=== PATIENT | female | born 1980 | race Caucasian/White ===

== ENCOUNTER 2020-09-08 09:24 | Emergency (ER) | payer OTHER, SELFPAY ==
[2020-09-08 09:30] VITALS: BP 156/92; PULSE 82; RESP 16; TEMP 36.3; O2SAT 99
--- NOTE | 2020-09-08 09:30 | DI.RAD_ITS ---
EXAM: XR TIB/FIB RT CLINICAL HISTORY: pain s/p fall TECHNIQUE: COMPARISON: CR,XR XR ANKLE RT COMPLETE from 09/08/2020 FINDINGS: Two views of the leg and three views of the ankle were obtained. There is no evidence of fracture or dislocation. Ankle mortise is well maintained. There is moderate soft tissue swelling adjacent to the lateral malleolus. IMPRESSION: RADIATION DOSE DELIVERED: Total DLP
--- NOTE | 2020-09-08 09:38 | W.ED.GENAD ---
Discharge Plan Disposition Patient Disposition: HOME Condition: Stable Discharge Details Clinical Impression: Right ankle sprain Primary Care Provider: Shirley Benton ED Provider: Quique Clark Home Meds and New Rx's Prescriptions: Continued albuterol sulfate 8.5 GM HFA aerosol inhaler 1 - 2 puff Inhalation Q4H PRN RF: 0 Discharge Instructions Instructions: Ankle Sprain (ED) Additional Instructions: Your xray did not show any broken bones follow up with your primary care provider if pain continues in a week if you have new pain such as chest pain, headache or difficulty breathing return to the emergency department and if you have severe worsening pain Medical Decision Making 39 yo female was riding a hoverboard on Wednesday and tripped and rolled her right ankle. Denies hitting head or loc. Has no pain in the head, neck chest abdomen, only has pain in anterior mid tibia and lateral ankle. Mild swelling of right lateral ankle and normal sensation and pulses, no pain over metatarsals, does have full range of motion of ankle. no pain in knee or hip with full rom. Suspect sprain but will xray to evaluate for fx/dislocation xray negative exam stable. Will d/c and have her f/u with pcp if pain continues and return precautions given Differential Diagnosis Differential Diagnosis: sprain, strain, fx Imaging Data Radiologic Study: Attestation: I personally reviewed and interpreted this imaging study as follows: Imaging: X-Ray Radiologist's impression: no acute findings on tib/fib xray Radiologic Study #2: Attestation: I personally reviewed and interpreted this imaging study as follows: Imaging: X-Ray Radiologist's impression: no acute findings on ankle xray [facility] General Mode of arrival: ambulatory. Date/Time Provider Initiated Documentation: 09/08/20 09:25. Limitations to Documentation: no limitations. Information obtained by: patient. History of Present Illness 39 year old F presents to the emergency department with the chief complaint of right ankle pain, described as moderate, and it has been constant. Rest improves symptom(s), Movement worsens symptoms . Patient did receive the following treatments prior to arrival, none Related Data Home Medications Medication Instructions Recorded Confirmed albuterol sulfate 1 - 2 puff INHALATION Q4H PRN 06/20/14 09/08/20 inhaler Allergies Allergy/AdvReac Type Severity Reaction Status Date / Time No Known Allergies Allergy Unverified 09/08/20 09:33 General Stated Complaint: Orthopedic JACOB: 4 Review of Systems All systems reviewed & are unremarkable except as noted in HPI and below Constitutional Constitutional: Denies chills, Denies fever(s) and Denies weakness Cardiovascular Cardiovascular: Denies chest pain and Denies dyspnea Respiratory Respiratory: Denies cough and Denies dyspnea Gastrointestinal Gastrointestinal: Denies abdominal pain, Denies nausea and Denies vomiting Integumentary/Breasts Skin/Breast: Denies rash Neurologic Neurologic: Denies weakness [facility] Social History Smoking/Tobacco Use Status: Never Substance use type: does not use Do you feel safe in your relationship?: Yes Exam Const General: no acute distress Orientation: alert HENMT Head: normal to inspection Ears: external ears normal General nose exam: external nose normal Mouth: moist mucous membranes Eyes General: appearance normal, both eyes and all related structures Neck Neck: normal visual inspection Resp Effort & Inspection: normal respiratory effort and able to speak in complete sentences Cardio Rate: regular rate Skin General skin exam: no rashes or lesions noted Neuro General: patient alert and patient oriented x3 Extrem General: full ROM and capillary refill normal Psych Mental Status: mental status grossly normal Course Vital Signs Vital signs: Vital Signs Temperature 36.3 C L 09/08/20 09:30 Pulse 82 09/08/20 09:30 Respiratory Rate 16 09/08/20 09:30 Blood Pressure 156/92 H 09/08/20 09:30 Pulse Oximetry 99 09/08/20 09:30 Temperature 36.3 C L 09/08/20 09:30 Temperature Source Skin 09/08/20 09:30 Pulse 82 09/08/20 09:30 Respiratory Rate 16 09/08/20 09:30 Respiratory Effort 09/08/20 09:30 Blood Pressure 156/92 H 09/08/20 09:30 Blood Pressure Position Sitting 09/08/20 09:30 Pulse Oximetry 99 09/08/20 09:30 Oxygen Delivery Method Nasal Cannula 09/08/20 09:30 Pain Level 8 09/08/20 09:30
--- NOTE | 2020-09-08 10:03 | DI.VRAD_ITS ---
PROCEDURE INFORMATION: Exam: XR Right Ankle Exam date and time: 09/08/2020 9:51 AM Age: 39 years old Clinical indication: Pain; Ankle; Right; Patient HX: Fall TECHNIQUE: Imaging protocol: XR Right ankle. Views: 3 or more views. COMPARISON: No relevant prior studies available. FINDINGS: Bones/joints: There is no evidence of acute fracture.There is no evidence of malalignment or dislocation. Soft tissues: Bimalleolar soft tissue swelling IMPRESSION: There is no evidence of acute fracture.There is no evidence of malalignment or dislocation. Dictated and Authenticated by: Cedric Mckinley MD. Ordering:KIN Lei MD
--- NOTE | 2020-09-08 10:03 | DI.VRAD_ITS ---
PROCEDURE INFORMATION: Exam: XR Right Tibia and Fibula Exam date and time: 09/08/2020 9:53 AM Age: 39 years old Clinical indication: Pain; Lower leg; Right; Patient HX: Fall TECHNIQUE: Imaging protocol: XR Right tibia and fibula. Views: 2 views. COMPARISON: No relevant prior studies available. FINDINGS: Bones/joints: There is no evidence of acute fracture.There is no evidence of malalignment or dislocation. Soft tissues: Normal. IMPRESSION: There is no evidence of acute fracture.There is no evidence of malalignment or dislocation. Dictated and Authenticated by: Cedric Mckinley MD. Ordering:KIN Lei MD
== END 2020-09-08 10:41 | disposition home or self-care (01) ==
PROVIDERS: Emergency Provider Emergency Medicine; PCP Nurse Practitioner Family
DX: S93.491A Sprain of other ligament of right ankle, initial encounter (principal); X50.9XXA Other and unspecified overexertion or strenuous movements or postures, initial encounter; Y93.41 Activity, dancing
CPT/HCPCS: 29515; 99284; 73590; 73610; 99283; L1902

== ENCOUNTER 2021-05-13 09:16 | Outpatient (REF) | payer SELFPAY ==
--- NOTE | 2021-05-13 08:45 | PAPFT_PTH ---
PATIENT: Lashay Felipe LOC: NCN #:[id number] AGE/SX: 40/F ROOM: RE05/13/[address]: Shirley Benton : 1980 BED: DIS: 05/13/2021 SPEC #: [id number] RECD: 05/14/21 12:49 STATUS: CHERIE RELetha #: [id number] FIDENCIO: 05/13/21 08:[address]: Shirley Benton DEPT: [facility] Cytology RECD BY: Joyce Smith Tissues: 1 - CX/ENDOCX FOR PAP SMEARS Procedures: PAP THIN PREP/UVM Screening HPV DNA PROBE Comments: [id number]
[2021-05-13 20:08] LABS: Anion Gap 9.9 mmol/L (3-11); BUN 13 mg/dL (7-18); CO2 26.1 mmol/L (21.0-32.0); CREATININE 0.9 mg/dL (0.55-1.02); Calcium 9.1 mg/dL (8.5-10.1); Calculated LDL 127 mg/dL (<100); Chloride 105 mmol/L (98-107); Cholesterol 190 mg/dL (<200); Glucose 90 mg/dL (74-106); HDL Cholesterol 40 mg/dL (40-60); Potassium 4.2 mmol/L (3.5-5.1); Sodium 141 mmol/L (136-145); TSH (W/Ref FT4) 1.27 uIU/mL (0.36-3.74); Triglyceride 117 mg/dL (<150)
== END 2021-05-13 09:17 | disposition home or self-care (01) ==
LOC: NCHCN 09:16
PROVIDERS: PCP Nurse Practitioner Family; Visit Provider Nurse Practitioner Family
DX: Z00.00 Encounter for general adult medical examination without abnormal findings (principal); Z13.220 Encounter for screening for lipoid disorders; Z12.4 Encounter for screening for malignant neoplasm of cervix; Z11.51 Encounter for screening for human papillomavirus (HPV)
CPT/HCPCS: 80048; 80061; 88142; 84443; 87624

== ENCOUNTER 2023-03-04 10:52 | Outpatient (REF) | payer OTHER, SELFPAY | END 2023-03-04 10:53 | disposition home or self-care (01) | LOC: LBN 10:52 | PROVIDERS: PCP Nurse Practitioner Family; Visit Provider Physician Assistant Medical | DX: J02.9 Acute pharyngitis, unspecified (principal) | CPT/HCPCS: 87077; 87070 ==

== ENCOUNTER 2023-08-04 16:38 | Outpatient (REF) | payer OTHER, SELFPAY ==
[2023-08-04 19:34] LABS: Anion Gap 8.9 mmol/L (3-11); BUN 15 mg/dL (7-18); CO2 26.1 mmol/L (21.0-32.0); Calculated LDL 120 mg/dL (<100); Chloride 101 mmol/L (98-107); Cholesterol 194 mg/dL (<200); Estimated GFR 72.58 (mL/min/1.73m2); Glucose 82 mg/dL (74-106); HDL Cholesterol 44 mg/dL (40-60); Potassium 4.1 mmol/L (3.5-5.1); Sodium 136 mmol/L (136-145); Triglyceride 153 mg/dL (<150)
== END 2023-08-04 16:39 | disposition home or self-care (01) ==
LOC: NCHCN 16:38
PROVIDERS: PCP Nurse Practitioner Family; Visit Provider Nurse Practitioner Family
DX: E78.5 Hyperlipidemia, unspecified (principal); J45.20 Mild intermittent asthma, uncomplicated; E66.8 Other obesity; Z68.38 Body mass index [BMI] 38.0-38.9, adult
CPT/HCPCS: 80048; 80061

== ENCOUNTER → 2023-09-16 01:32 | Outpatient (CLI) | payer OTHER, SELFPAY ==
--- NOTE | 2023-09-16 08:46 | DI.MAMMO_ITS ---
Exam(s) MAMMO SCREENING EXAM: MAMMO SCREENING CLINICAL HISTORY: Screening, Z12.39 TECHNIQUE: Bilateral full field digital CC and MLO mammographic images were obtained with 3D tomosyn thesis and utilizing computer aided detection (CAD). COMPARISON: This is a baseline examination. FINDINGS: Masses/Architectural Distortion: None seen. Microcalcifications: No suspicious pleomorphic-type are seen. Skin Thickening/Nipple Retraction: None. IMPRESSION: 1. No significant interval change with no specific features of malignancy noted. 2. Unless there is more urgent need, screening mammography is recommended, as per [employer] guidelines. BI-RADS Category 1 - Negative Breast Density - Category C - Heterogeneously dense Breast density category C or D implies that the patient has dense breast tissue. Dense breast tissue is very common and is not abnormal but dense breast tissue can make it harder to find cancer on a ma mmogram. Also, dense breast tissue may increase their breast cancer risk. This information about the result of the mammogram report was provided to the patient to raise their awareness. Use this report when you speak with the patient about their risks for breast cancer, which includes their family hist ory. At that time, you may recommend for more screening tests (Ultrasound or MRI) as they might be us eful based on their risk. A negative radiographic report should not delay biopsy if a dominant or clinically suspicious mass is present. Up to ten percent of cancers are not identified on mammography. A negative report may reinforce clinical impression. Adenosis and dense breasts may obscure an underlying neoplasm. False positive reports average 6 to 10%. Patient will receive a letter notifying them of these results.
== END ==
PROVIDERS: PCP Nurse Practitioner Family; Visit Provider Nurse Practitioner Family
DX: Z12.31 Encounter for screening mammogram for malignant neoplasm of breast (principal)
CPT/HCPCS: 77063; 77067

== ENCOUNTER 2024-02-22 10:22 | Outpatient (REF) | payer OTHER, SELFPAY ==
[2024-02-22 18:55] LABS: Abs Immature Grans 0.02 10^3/uL (0.0-0.06); Absolute Basophil Count 0.05 10^3/uL (0.0-0.2); Absolute Eosinophil Count 0.18 10^3/uL (0.0-0.7); Absolute Monocyte Count 0.43 10^3/uL (0.1-0.8); Absolute Neutrophil Count 3.57 10^3/uL (1.2-6.7); Basophils % 0.8; Eosinophils % 2.9; HCT 40.4 % (36.0-46.0); HGB 13.2 g/dL (11.2-15.7); Immature Grans % 0.3; MCH 30.5 pg (27.0-33.0); MCHC 32.7 % (32.0-36.0); MCV 93 fL (80-95); Monocytes % 6.9; Neutrophils % 57.1; Platelet Count 365 10^3/uL (130-400); RBC 4.33 10^6/uL (3.93-5.22); RDW 12.5 % (11.7-14.6); RDW-SD 43.2 fL; WBC 6.25 10^3/uL (4.4-10.8)
[2024-02-22 19:22] LABS: ALT 25 U/L (14-59); AST 8 U/L (15-37); Albumin 3.7 g/dL (3.4-5.0); Alkaline Phosphatase 24 U/L (46-116); Anion Gap 9.4 mmol/L (3-11); BUN 15 mg/dL (7-18); Bilirubin, Total 0.3 mg/dL (0.2-1.0); CO2 27.6 mmol/L (21.0-32.0); CREATININE 0.9 mg/dL (0.55-1.02); Calcium 9.2 mg/dL (8.5-10.1); Chloride 107 mmol/L (98-107); Estimated GFR 81.86 (mL/min/1.73m2); Ferritin 66 ng/mL (8-252); Glucose 91 mg/dL (74-106); Potassium 4.8 mmol/L (3.5-5.1); Sodium 144 mmol/L (136-145); TSH (W/Ref FT4) 1.18 uIU/mL (0.36-3.74)
[2024-02-22 19:42] LABS: Iron 83 ug/dL (50-170); Total Iron Binding Capacity 299 ug/dL (250-450); Transferrin Sat 28 % (15-50)
== END 2024-02-22 10:23 | disposition home or self-care (01) ==
LOC: NCHCN 10:22
PROVIDERS: PCP Nurse Practitioner Family; Visit Provider Nurse Practitioner Family
DX: R53.83 Other fatigue (principal)
CPT/HCPCS: 80053; 82728; 83540; 83550; 84443; 85025

== ENCOUNTER 2024-03-12 19:30 | Observation (INO) | payer OTHER, SELFPAY ==
[2024-03-12] VITALS (30 sets, daily range): BP systolic 108–190; BP diastolic 57–87; PULSE 98–135; RESP 10–20; TEMP 39; O2SAT 94–100
--- NOTE | 2024-03-12 19:30 | RT.EKG_ITS ---
APPROVED REPORT Exam: Resting ECG Reason for Exam: sob Patient Location: E HR:134 bpm ECG Measurements Heart Rate 134 AXIS NC 132 P 80 QRSd 78 QRS 78 QT 364 T -83 QTc 544 Conclusion Sinus tachycardia...rate> 99 Nonspecific repol abnormality, diffuse leads...ST dep, T flat/neg, ant/lat/inf Prolonged QT interval...QTc >510mS Physician: lateral st depressions. No stemi
--- NOTE | 2024-03-12 19:50 | ED.GENADUL_ITS ---
Discharge Plan Disposition Patient Disposition: Admit to [facility] Condition: Stable Discharge Details Clinical Impression: Sepsis, Pneumonia Primary Care Provider: MADISON CAMPUZANO ED Provider: Shin Houston Home Meds and New Rx's Prescriptions: No Action albuterol sulfate 8.5 GM HFA aerosol inhaler 1 - 2 puff Inhalation Q4H PRN montelukast 10 mg tablet 10 mg PO DAILY Patient Comments: TAKE ONE TABLET BY MOUTH EVERY DAY HPI General Date/Time Provider Initiated Documentation: 03/12/24 19:50 . HPI Narrative: 43 year-old female presents to ED today by POV/ambulating with a chief complaint of chest pain/shortness of breath with onset yesterday while painting a fence. Has history of asthma, felt similar- but has had continued chest pressure, shortness of breath, non-productive cough, vomiting, headaches, and fever. Quality described as generalized malaise, no radiation to syncope, dizziness, black/bloody stools, focal abdominal pain, visual changes. Severity is described as 8/10. Palliating factors include had Tylenol & Motrin 6 hours ago. Patients at-home inhalers aren't helping. Provoking factors include nothing specific. Events leading up to the incident/Associated Symptoms: [ ]. Patient not anticoagulated. Related Data Home Medications Medication Instructions Recorded Confirmed albuterol sulfate 90 mcg/actuation 1 - 2 puff inhalation Q4H PRN 06/20/14 03/12/24 aerosol inhaler montelukast 10 mg tablet 10 mg PO DAILY 03/12/24 03/12/24 Allergies Allergy/AdvReac Type Severity Reaction Status Date / Time No Known Allergies Allergy Unverified 03/12/24 19:48 General Stated Complaint: RespSymp JACOB: 3 Review of Systems All systems reviewed & are unremarkable except as noted in HPI and below Exam Narrative Exam Narrative: GENERAL APPEARANCE: Well-nourished, non-toxic, awake and alert, atraumatic, no acute distress. SKIN: Warm, pink, dry, intact, without rashes/lesions/ulcerations. HEAD: Normocephalic, atraumatic, normal hair distribution for gender/age. EYES: Pupils PERRLA, EOMs intact without nystagmus, normal conjunctiva, no exudates on lids/lashes. ENT: Nares patent, no circumoral cyanosis, no facial swelling, oral mucosa moist NECK: Supple, trachea midline, painless cervical ROM. LUNGS/CHEST: Lungs CTA bilaterally- rales/wheezes diffusely- rhonchi on R, active cough, non-labored respirations, normal A/P diameter, symmetrical expansion, no chest wall deformity HEART (CV/PV): Regular rate and rhythm without murmur- tachycardic, no peripheral edema, no JVD. ABDOMEN: Soft, non-distended, no guarding, no tenderness. MSK: Normal ROM, no swelling/deformity to bilateral UEs or LEs, moving all extremities without weakness, no cyanosis, spine midline without tenderness, normal curvature. NEURO: Mental Status AAOx4 - alert to person, place, time, events No facial droop, no forehead involvement. Motor: No focal weakness - strength 5/5 in bilateral UEs and LEs, proximal and distal, symmetric. Sensory: sensation intact to light touch globally. Gait normal: patient ambulated without ataxia into ED room. PSYCH: euthymic, cooperative, pleasant, appropriate speech Course Vital Signs Vital signs: Vital Signs Temperature 39.0 C H 03/12/24 19:34 Pulse 134 H 03/12/24 19:34 Respiratory Rate 16 03/12/24 19:34 Blood Pressure 190/87 H 03/12/24 19:34 Pulse Oximetry 97 03/12/24 19:34 Temperature 39.0 C H 03/12/24 19:34 Temperature Source Oral 03/12/24 19:34 Pulse 134 H 03/12/24 19:34 Respiratory Rate 16 03/12/24 19:34 Respiratory Effort Normal, Non-Labored 03/12/24 19:47 Blood Pressure 190/87 H 03/12/24 19:34 Blood Pressure Position Supine 03/12/24 19:34 Pulse Oximetry 97 03/12/24 19:34 Oxygen Delivery Method Room Air 03/12/24 19:34 Oxygen Flow Rate 0 03/12/24 19:34 Pain Level 8 03/12/24 19:34 Medical Decision Making This dictation utilizes [id number] dictation software and may contain unedited grammatical errors. 43 y/o F presents to ED today with a chief complaint of onset of shortness of breath, chest pain yesterday while painting a fence. This continued overnight and today she has had vomiting, body aches, non-productive cough, headache, and fever of 102F on arrival. Patient denies known sick contacts, feels similar to past significant asthma attacks but is ongoing for much longer and her inhalers haven't provided relief. Patients' medical history: Asthma. Family and social history: [ ]. Pertinent exam findings / vital signs include no overt wheezing, is tachypneic and tachycardic, benign abdomen, febrile, neuro intact. Differential / pathologies of concern include sepsis, URI, PNA, PE, ACS, Viral S yndrome. Diagnostic studies of: -CBC, CMP, lactate, procalcitonin, troponin I, BNP, CRP/ESR, lipase, magnesium, TSH, D-dimer, urinalysis, blood cultures, VBG, COVID/flu/RSV PCR, EKG. -CBC shows leukocytosis to 16 -CRP significantly elevated at 25, ESR elevated -Lactate neg, procal 0.1 -Elevated LFTs, consider legionella PNA -Covid/Flu/RSV neg -Trop I neg -BNP neg -Lipase WNL -Magnesium WNL -D-dimer 722, CTA performed -VBG no acidosis -EKG shows a sinus tachycardia with P waves followed by narrow complex QRS, rate 134, normal axis, good R wave progression, ST depression in V3 V4 and 5, no o ther T wave abnormalities, no ST elevations reciprocally, normal QT QTc -CTA shows multilobar R PNA Interventions of: -1L NS IVF, 1g IV APAP, 15mg IV Ketorlac, 6mL DuoNeb. ED Course/Assessment/Plan: 43-year-old female presents with onset of sudden onset shortness of breath and cough, body aches headaches yesterday, having chest pressure. CTA shows a multilobar right pneumonia, she remains very febrile at 39 C after both IV Tylenol and Toradol here in the emergency department, remains tachycardic with IV hydration. She appears overall well but has chronic severe asthma. Lactate and procalcitonin are negative but her ALT is significantly bumped. I loaded her with IV ceftriaxone and azithromycin, approached hospitalist service for admission for sepsis and pneumonia. Dr. Rojas accepted for admission at 2248. Findings not consistent with hypoxic respiratory failure. Disposition of Sepsis, Pneumonia. Patient verbalized understanding of the plan and return to ED criteria and en gaged in shared decision making. Medical Records Medical records reviewed: Yes I reviewed the patient's medical records. Imaging Data Radiologic Study: Attestation: I personally reviewed and interpreted this imaging study as follows: Imaging: CT Scan Radiologist's impression: Exam: CTA Chest With Contrast Exam date and time: 03/12/2024 9:07 PM Age: 43 years old Clinical indication: Patient HX: Tachycardic, chest pain, cough TECHNIQUE: Imaging protocol: Computed tomographic angiography of the chest with contrast. Exam focused on the arteries. 3D rendering (Not supervised by radiologist): MIP and/or 3D reconstructed images were created by the technologist. Radiation optimization: All CT scans at this facility use at least one of these dose optimization techniques: automated exposure control; mA and/or kV adjustment per patient size (includes targeted exams where dose is matched to clinical indication); or iterative reconstruction. Contrast material: OMNIPAQUE 350; Contrast volume: 100 ml; Contrast route: INTRAVENOUS (IV); COMPARISON: No relevant prior studies available. FINDINGS: Pulmonary arteries: Normal. No pulmonary emboli. Aorta: Unremarkable. No aortic aneurysm. No aortic dissection. Lungs: There nodular and ground-glass infiltrates in the right upper lobe, right middle and right lower lobe, most pronounced in the right upper lobe. The left lung is clear. Pleural spaces: Unremarkable. No pneumothorax. No pleural effusion. Heart: Unremarkable. No cardiomegaly. No pericardial effusion. Lymph nodes: Unremarkable. No enlarged lymph nodes. Diaphragm: There is a small hiatal hernia. Bones/joints: Multilevel small anterior osteophytes thoracic spine. Soft tissues: Unremarkable. IMPRESSION: 1. Multilobar right lung pneumonia. 2. No pulmonary embolism. Dictated and Authenticated by: Lamont Hernandez MD. Ordering:DAVID Melissa MD Lab Data Lab results reviewed: Yes I reviewed the patient's lab results. Labs: 03/12/24 20:15 Blood Blood Culture - Pending 03/12/24 19:45 Blood Blood Culture - Pending Laboratory Tests Range/Units 03/12/24 03/12/24 19:45 20:46 WBC (4.4-10.8) 10^3/uL 16.14 H RBC (3.93-5.22) 10^6/uL 4.06 Hgb (11.2-15.7) g/dL 12.5 Hct (36.0-46.0) % 37.6 MCV (80-95) fL 93 MCH (27.0-33.0) pg 30.8 MCHC (32.0-36.0) % 33.2 RDW (11.7-14.6) % 13.0 Plt Count (130-400) 10^3/uL 351 MPV (8.0-11.0) fL 9.4 Immature Gran % 0.5 Neutrophils % 81.8 Lymphocytes % 7.9 Monocytes % 8.5 Eosinophils % 0.9 Basophils % 0.4 Nucleated RBC % (0.0-0.3) % 0.0 Absolute Neutrophils (1.2-6.7) 10^3/uL 13.20 H Absolute Lymphocytes (1.2-3.4) 10^3/uL 1.28 Absolute Monocytes (0.1-0.8) 10^3/uL 1.37 H Absolute Eosinophils (0.0-0.7) 10^3/uL 0.15 Absolute Basophils (0.0-0.2) 10^3/uL 0.06 ESR (0-20) mm/hr 57 H D-Dimer (<500) ng/mlFEU 722 H VBG pH (7.31-7.41) 7.46 H VBG pCO2 (41-51) mmHg 34 L VBG pO2 mmHg 36 VBG HCO3 (23-28) mmol/L 25 VBG Total CO2 (24-29) mmol/L 22 L VBG O2 Saturation % 72 VBG Base Excess (-2-3) mmol/L 1 VBG Lactate (0.6-1.4) mmol/L 1.2 Sodium (136-145) mmol/L 140 Potassium (3.5-5.1) mmol/L 3.4 L Chloride (98-107) mmol/L 103 Carbon Dioxide (21.0-32.0) mmol/L 24.2 Anion Gap (3-11) mmol/L 12.8 H BUN (7-18) mg/dL 8 Creatinine (0.55-1.02) mg/dL 1.0 Est GFR (CKD-EPI 2020) (mL/min/1.73m2) 72.13 Glucose (74-106) mg/dL 125 H Calcium (8.5-10.1) mg/dL 9.3 Magnesium (1.8-2.4) mg/dL 1.9 Total Bilirubin (0.2-1.0) mg/dL 0.4 AST (15-37) U/L 105 H ALT (14-59) U/L 143 H Alkaline Phosphatase (46-116) U/L 76 Troponin I (< or =60) ng/L < 50 C-Reactive Protein (<or=0.5) mg/dL 21.30 H NT-Pro-B Natriuret Pep (<300) pg/mL 97 Total Protein (6.4-8.2) g/dL 8.5 H Albumin (3.4-5.0) g/dL 3.2 L Lipase (16-77) U/L 21 Procalcitonin ng/mL 0.1 TSH (0.36-3.74) uIU/mL 2.87 Urine Color (Yellow) Yellow Urine Clarity (Clear) Clear Urine pH (5-8) 8.0 Ur Specific [place] (1.005-1.025) 1.025 Urine Protein (Neg-Trace) mg/dL 100 H Urine Ketones (Negative) mg/dL Trace H Urine Blood (Negative) Small H Urine Nitrite (Negative) Negative Urine Bilirubin (Negative) Negative Urine Urobilinogen (Up to 0.2) mg/dL 2.0 H Ur Leukocyte Esterase (Negative) Negative Urine RBC (0-2) HPF 5-10 H Urine WBC (0-5) HPF 0-2 Ur Epithelial Cells (Negative) HPF Few Urine Crystals (Negative) HPF Negative Urine Bacteria (Negative) HPF Negative Urine Casts (Negative) LPF Negative Urine Mucus (Negative) Negative Ur Culture Indicated? No Urine Glucose (Negative) mg/dL Negative COVID-19 Source Nasopharynx SARS-CoV-2 (PCR) (Negative) Negative Influenza Type A (PCR) (Negative) Negative Influenza Type B (PCR) (Negative) Negative RSV (PCR) (Negative) Negative Quality:SDOH Health Related Social Needs: No Data to Display PFSH All Active Problems (Updated 03/12/24 @ 22:32 by DANY Martinez) Pneumonia (Acute) Sepsis (Acute) Social History Smoking/Tobacco Use Status: Never Smoking risk assessment performed?: Yes Alcohol Intake: never Drug use: Never Substance use type: does not use Do you feel safe in your relationship?: Yes
[2024-03-12 19:57] LABS: BE (Venous) 1 mmol/L (-2-3); HCO3 (Venous) 25 mmol/L (23-28); O2 Sat (Venous) 72 %; TCO2 (Venous) 22 mmol/L (24-29); pCO2 (Venous) 34 mmHg (41-51); pH (Venous) 7.46 (7.31-7.41); pO2 (Venous) 36 mmHg
[2024-03-12 19:59] LABS: Lactate 1.2 mmol/L (0.6-1.4)
[2024-03-12 20:03] LABS: Abs Immature Grans 0.08 10^3/uL (0.0-0.06); Absolute Lymphocyte Count 1.28 10^3/uL (1.2-3.4); Absolute Monocyte Count 1.37 10^3/uL (0.1-0.8); Basophils % 0.4; Eosinophils % 0.9; HCT 37.6 % (36.0-46.0); HGB 12.5 g/dL (11.2-15.7); Immature Grans % 0.5; Lymphocytes % 7.9; MCH 30.8 pg (27.0-33.0); MCHC 33.2 % (32.0-36.0); MCV 93 fL (80-95); MPV 9.4 fL (8.0-11.0); Monocytes % 8.5; Neutrophils % 81.8; Platelet Count 351 10^3/uL (130-400); RBC 4.06 10^6/uL (3.93-5.22); RDW-SD 44.6 fL; WBC 16.14 10^3/uL (4.4-10.8)
[2024-03-12 20:07] LABS: Absolute Basophil Count 0.06 10^3/uL (0.0-0.2); Absolute Eosinophil Count 0.15 10^3/uL (0.0-0.7); ESR 57 mm/hr (0-20)
[2024-03-12] MEDS: Normal Saline 1,000 ML 1000 ML IV ×2 (20:20→22:35)
[2024-03-12] MEDS: Ketorolac 15 MG/ML VIAL IVP (20:21)
[2024-03-12] MEDS: ACETAMINOPHEN 1,000 MG/100 ML BTL 400 MG IVPB (20:22)
[2024-03-12] MEDS: Albuterol/Ipratropium 3 ML UPD VIAL 6 ML UPD (20:22)
[2024-03-12 20:25] LABS: ALT 143 U/L (14-59); AST 105 U/L (15-37); Albumin 3.2 g/dL (3.4-5.0); Alkaline Phosphatase 76 U/L (46-116); Anion Gap 12.8 mmol/L (3-11); BUN 8 mg/dL (7-18); Bilirubin, Total 0.4 mg/dL (0.2-1.0); CO2 24.2 mmol/L (21.0-32.0); Calcium 9.3 mg/dL (8.5-10.1); Chloride 103 mmol/L (98-107); Estimated GFR 72.13 (mL/min/1.73m2); Glucose 125 mg/dL (74-106); Lipase 21 U/L (16-77); Magnesium 1.9 mg/dL (1.8-2.4); NT-proBNP 97 pg/mL (<300); Potassium 3.4 mmol/L (3.5-5.1); Sodium 140 mmol/L (136-145); TSH (W/Ref FT4) 2.87 uIU/mL (0.36-3.74); Total Protein 8.5 g/dL (6.4-8.2); Troponin I < 50 ng/L (< or =60)
[2024-03-12 20:27] LABS: COVID-19 PCR Negative (Negative); Influenza A PCR Negative (Negative); Influenza B PCR Negative (Negative); RSV PCR Negative (Negative)
[2024-03-12 20:30] LABS: Source Nasopharynx
[2024-03-12 20:31] LABS: Procalcitonin 0.1 ng/mL
[2024-03-12 20:32] LABS: D-Dimer 722 ng/mlFEU (<500)
--- NOTE | 2024-03-12 20:45 | DI.CT_ITS ---
Exam(s) CT CHEST PE CTA EXAM: CT CHEST PE CTA CLINICAL HISTORY: tachycardic, chest pain, cough. TECHNIQUE: Imaging Protocol: CT angiography of the chest was performed using pulmonary embolus ester col. Multi planar reconstructions were performed. CONTRAST MATERIAL: Intravenous: Omnipaque 350 Contrast volume: 100 cc COMPARISON: No exams were available for comparison FINDINGS: CHEST: PULMONARY ARTERIES: There are no intraluminal filling defects to suggest acute pulmonary emboli. LUNGS: There is a prominent area of confluent infiltrate in the right upper lobe predominately involv ing the posterior segment but there is also patchy infiltrate in the anterior segment of the right up per lobe. There is also similar patchy infiltrate in the right middle lobe and right lower lobes. T he left lung is clear with the exception of a small nodular density in the lateral aspect of the supe rior segment of the left lower lobe which measures 4-5 mm.. There are no findings in the trachea and mainstem bronchi. There are no pleural effusions. MEDIASTINUM: Mildly enlarged lymph nodes are noted in the right hilum; less so in the left hilum. Mi ld subcarinal lymph nodes noted. CARDIAC: Heart size is upper normal. There is no pericardial effusion.Caliber of the thoracic aorta is within normal limits. No evidence of dissection. There is no significant shift of the interventri cular septum. PARTIALLY VISUALIZED UPPERMOST ABDOMEN: No obvious findings OSSEOUS: No significant osseous lesions.No fractures.. IMPRESSION: 1. No evidence of acute pulmonary emboli. However, there is extensive infiltrate in the right lung i nvolving all lobes, with the largest area of confluent infiltrate being in the posterior segment of t he right upper lobe. There are no pleural effusions. 2. Solitary finding in the opposite-left lung which is a 4-5 millimeter nodular infiltrate in the lef t lower lobe. 3. Slightly enlarged lymph nodes in the right hilum and subcarinal region which are most probably rel ated to the prominent area of pneumonia in the right lung. RADIATION DOSE DELIVERED: 445.2mGy.cm Total DLP DATA REPOSITORY: All CT scans at this facility are submitted to the National Radiology Data Registry (NRDR) Dose Index Registry (DIR) with the [employer] ([employer]). RADIATION OPTIMIZATION: All CT scans at this facility use at least one of these dose optimization te chniques: automated exposure control; mA and/or kV adjustment per patient size (includes targeted exa ms where dose is matched to clinical indication); or iterative reconstruction.
[2024-03-12] MEDS: Omnipaque 350 MG/ML 100 ML BTL IJ (21:01)
[2024-03-12] MEDS: Normal Saline - Diluent 50 ML VIAL IJ (21:02)
[2024-03-12] MEDS: Normal Saline Flush 10 ML SYR IVP (21:03)
[2024-03-12 21:05] LABS: Bilirubin Negative (Negative); Blood Small (Negative); Clarity Clear (Clear); Glucose Negative (Negative); Ketones Trace mg/dL (Negative); Leukocyte Esterase Negative (Negative); Nitrite Negative (Negative); Specific Gravity 1.025 (1.005-1.025)
[2024-03-12 21:20] LABS: Bacteria Negative HPF (Negative); Epithelial Cells Few HPF (Negative); WBC 0-2 HPF (0-5)
[2024-03-12 21:21] LABS: C & S Indicated? No; Casts Negative LPF (Negative); Crystals Negative HPF (Negative); Mucus Negative (Negative)
--- NOTE | 2024-03-12 21:55 | DI.VRAD_ITS ---
PROCEDURE INFORMATION: Exam: CTA Chest With Contrast Exam date and time: 03/12/2024 9:07 PM Age: 43 years old Clinical indication: Patient HX: Tachycardic, chest pain, cough TECHNIQUE: Imaging protocol: Computed tomographic angiography of the chest with contrast. Exam focused on the arteries. 3D rendering (Not supervised by radiologist): MIP and/or 3D reconstructed images were created by the technologist. Radiation optimization: All CT scans at this facility use at least one of these dose optimization techniques: automated exposure control; mA and/or kV adjustment per patient size (includes targeted exams where dose is matched to clinical indication); or iterative reconstruction. Contrast material: OMNIPAQUE 350; Contrast volume: 100 ml; Contrast route: INTRAVENOUS (IV); COMPARISON: No relevant prior studies available. FINDINGS: Pulmonary arteries: Normal. No pulmonary emboli. Aorta: Unremarkable. No aortic aneurysm. No aortic dissection. Lungs: There nodular and ground-glass infiltrates in the right upper lobe, right middle and right lower lobe, most pronounced in the right upper lobe. The left lung is clear. Pleural spaces: Unremarkable. No pneumothorax. No pleural effusion. Heart: Unremarkable. No cardiomegaly. No pericardial effusion. Lymph nodes: Unremarkable. No enlarged lymph nodes. Diaphragm: There is a small hiatal hernia. Bones/joints: Multilevel small anterior osteophytes thoracic spine. Soft tissues: Unremarkable. IMPRESSION: 1. Multilobar right lung pneumonia. 2. No pulmonary embolism. Dictated and Authenticated by: Lamont Hernandez MD. Ordering:DAVID Melissa MD
[2024-03-12] MEDS: cefTRIAXone 2 GM/50 ML BAG IVPB (22:35)
--- NOTE | 2024-03-12 22:48 | HPE_ITS ---
Date of service: 03/12/24 Time of Service: 22:48 Assessment and Plan Assessment and plan (1) Pneumonia: Status: Acute Assessment and plan: Community acquired pneumonia. Will cover for typical organisms but it can be noted that the variety of ancillary findings suggest possible Legionella and will continue Zithro (and check urinary antigen). Asthma a modest contributing factor, will continue prn updrafts but I don't think patient needs steroids at present. History of Present Illness History of Present Illness Chief Complaint: cough, SOB Narrative: 43 female with h/o asthma here with one day of dry cough, SOB, anterior CP with coughing, fatigue, myalgias. No help with home inhaler. In ER findings of note for temp 39, white count 16, CT showing bilobar right-sided pneumonia (RUL>LLL), modest transaminitis and microscopic hematuria. Patient given updraft (some improvement), Rocephin and Zithro. I was asked to evaluate for admission. Viral swab is triple negative. Review of Systems Narrative: per HPI PFSH All Active Problems Pneumonia (Acute) Sepsis (Acute) Social History Smoking/Tobacco Use Status: Never Smoking risk assessment performed?: Yes Alcohol Intake: never Drug use: Never Substance use type: does not use Do you feel safe in your relationship?: Yes Meds Allergies and Home Medications Allergies Allergy/AdvReac Type Severity Reaction Status Date / Time No Known Allergies Allergy Unverified 03/12/24 19:48 Home Medications Medication Instructions Recorded Confirmed Type albuterol sulfate 90 mcg/actuation 1 - 2 puff inhalation Q4H PRN 06/20/14 03/12/24 History aerosol inhaler montelukast 10 mg tablet 10 mg PO DAILY 03/12/24 03/12/24 History Exam Narrative Exam Narrative: 120/59, 98, 39.0, 16, 98% RA. HEENT atraumatic; necksupple; lungs scattered wheeze; heart RRR; abdomen soft and NT; extremities w/o edema; neuro Ox3, lucid, moves all 4s Results Labs 03/12/24 19:45 03/12/24 19:45 Labs: Laboratory Results - last 24 hr 03/12/24 03/12/24 19:45 20:46 WBC 16.14 H RBC 4.06 Hgb 12.5 Hct 37.6 MCV 93 MCH 30.8 MCHC 33.2 RDW 13.0 Plt Count 351 MPV 9.4 Immature Gran % 0.5 Neutrophils % 81.8 Lymphocytes % 7.9 Monocytes % 8.5 Eosinophils % 0.9 Basophils % 0.4 Nucleated RBC % 0.0 Absolute Neutrophils 13.20 H Absolute Lymphocytes 1.28 Absolute Monocytes 1.37 H Absolute Eosinophils 0.15 Absolute Basophils 0.06 ESR 57 H D-Dimer 722 H VBG pH 7.46 H VBG pCO2 34 L VBG pO2 36 VBG HCO3 25 VBG Total CO2 22 L VBG O2 Saturation 72 VBG Base Excess 1 VBG Lactate 1.2 Sodium 140 Potassium 3.4 L Chloride 103 Carbon Dioxide 24.2 Anion Gap 12.8 H BUN 8 Creatinine 1.0 Est GFR (CKD-EPI 2020) 72.13 Glucose 125 H Calcium 9.3 Magnesium 1.9 Total Bilirubin 0.4 AST 105 H ALT 143 H Alkaline Phosphatase 76 Troponin I < 50 C-Reactive Protein 21.30 H NT-Pro-B Natriuret Pep 97 Total Protein 8.5 H Albumin 3.2 L Lipase 21 Procalcitonin 0.1 TSH 2.87 Urine Color Yellow Urine Clarity Clear Urine pH 8.0 Ur Specific [place] 1.025 Urine Protein 100 H Urine Ketones Trace H Urine Blood Small H Urine Nitrite Negative Urine Bilirubin Negative Urine Urobilinogen 2.0 H Ur Leukocyte Esterase Negative Urine RBC 5-10 H Urine WBC 0-2 Ur Epithelial Cells Few Urine Crystals Negative Urine Bacteria Negative Urine Casts Negative Urine Mucus Negative Ur Culture Indicated? No Urine Glucose Negative COVID-19 Source Nasopharynx SARS-CoV-2 (PCR) Negative Influenza Type A (PCR) Negative Influenza Type B (PCR) Negative RSV (PCR) Negative Last Vital Signs Temp 39.0 C H 03/12/24 19:49 Pulse 98 H 03/12/24 22:21 Resp 16 03/12/24 22:40 BP 120/59 L 03/12/24 22:21 Pulse Ox 98 03/12/24 22:40 Time Spent Time spent with Patient: 40-54 minutes Time was spent: preparing to see the patient(eg.review tests), obtaining and/or reviewing separately otained hiistory, ordering medications,tests, procedures, referring, communicating with other health health care coordinator and indepentently interpreting results
[2024-03-12] MEDS: AZITHROMYCIN 500 MG in Normal Saline 250 ML 250 MG IVPB (23:10)
[2024-03-13] VITALS (19 sets, daily range): BP systolic 118–156; BP diastolic 71–80; PULSE 89–116; RESP 2–22; TEMP 37.2–38.4; O2SAT 94–98
[2024-03-13] MEDS: Acetaminophen 325 MG TAB 650 MG PO ×4 (01:40→20:12)
[2024-03-13] MEDS: Albuterol/Ipratropium 3 ML UPD VIAL UPD (07:50)
[2024-03-13] MEDS: Montelukast 10 MG TAB PO (08:35)
--- NOTE | 2024-03-13 09:06 | INITIAL_ITS ---
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 She drives and is active and completely independent with her ADL's/IADL's at baseline. CURRENT FUNCTIONAL STATUS:: Lashay was sitting up in bed when CM met with her. Per pt, she does not feel any better and cant stop coughing. She was able to collect a sputum sample, CM notified nursing. ADVANCE DIRECTIVES:: None on file at [facility], CM will review Has patient been provided with info about the portal/API?: Yes Did the patient sign up for the portal?: No CODE STATUS:: Full Code INSURANCE COVERAGE / FINANCIAL ISSUES:: Medicaid CURRENT HOME/COMMUNITY SERVICES/EQUIPMENT:: None PRIMARY CARE PHYSICIAN:: Teresita Abernathy POTENTIAL DISCHARGE NEEDS:: Discharge plan of care, follow up appt with PCP PATIENT/FAMILY EDUCATION NEEDS:: Review discharge instructions, limitations, medications and plan to follow up with community providers. Discuss ask me three. ANTICIPATED BARRIERS TO DISCHARGE:: None identified at this time TRANSPORTATION:: Via private vehicle with family PLAN:: Anticipate Lashay will discharge home via private vehicle with family when Medically ready. Pt will follow up with community providers and her discharge plan of care as instructed. No new services are anticipated at this time. CM will follow. PFSH All Active Problems (Updated 03/13/24 @ 01:01 by JOSEPH TERRY) Pneumonia (Acute) Sepsis (Acute) Social History Smoking/Tobacco Use Status: Never Smoking risk assessment performed?: Yes Alcohol Intake: never Drug use: Never Substance use type: does not use Housing: house Do you feel safe in your relationship?: Yes SDOH(Care Management) Screening Will the Patient Participate in the Screening?: Yes Do you worry about having a steady place to live?: no Problems where you live: no known problems In the past 12 months, have you had to go without electric, gas, oil or water in your home?: yes Have you or anyone in your house had to go without enough food to eat?: no Has lack of transportation kept you from medical appointments or from doing things needed for daily living?: no Has anyone in your support network made you feel unsafe for any reason?: no Health Related Social Needs Health related social needs: material hardship(utilities)(Z59.87)
[2024-03-13] MEDS: Normal Saline Flush 10 ML SYR IVP ×4 (10:06→22:00)
[2024-03-13] MEDS: Ketorolac 15 MG/ML VIAL IVP ×3 (10:06→22:00)
[2024-03-13] MEDS: guaiFENesin 600 MG TABCR PO ×2 (12:38→20:12)
--- NOTE | 2024-03-13 12:59 | PGE_ITS ---
Date of Service Date of service: 03/13/24 Time of Service: 12:59 Assessment and Plan Assessment and plan (1) Pneumonia: Status: Acute Assessment and plan: Community acquired pneumonia. continue ceftriaxone and azithromycin day 2/5 (pending urinary antigen). continue prn updrafts sputum culture pending. continue antipyretics. add mucinex, acapella. anticipate a discharge to home tomorrow if medically stable. discussed with DR Olivares Subjective Subjective Patient reports: tolerating liquids well, tolerating a regular diet and fever Interval history since last seen: c/o productive cough, causes headache, max temp 38.4 overnight. no oxygen requirements. Exam Narrative Exam Narrative: Well-appearing female of stated age in no acute distress head is atraumatic eyes nonicteric noninjected oral mucosas moist neck is supple with full range of motion no meningeal signs no JVD respirations are even and unlabored her breath sounds are clear bilaterally with diminished in the bases there is no rhonchi or wheezing noted cardiovascular regular rate and rhythm her abdomen is soft nontender skin without rashes or lesions moves all extremities no peripheral edema neurologic she is awake alert oriented no focal deficits psychiatric normal mood and affect Objective Last Vital Signs Temp 37.3 C 03/13/24 12:39 Pulse 112 H 03/13/24 08:39 Resp 18 03/13/24 08:39 BP 124/76 03/13/24 08:39 Pulse Ox 94 03/13/24 08:39 Laboratory Results - last 24 hr 03/12/24 03/12/24 19:45 20:46 WBC 16.14 H RBC 4.06 Hgb 12.5 Hct 37.6 MCV 93 MCH 30.8 MCHC 33.2 RDW 13.0 Plt Count 351 MPV 9.4 Immature Gran % 0.5 Neutrophils % 81.8 Lymphocytes % 7.9 Monocytes % 8.5 Eosinophils % 0.9 Basophils % 0.4 Nucleated RBC % 0.0 Absolute Neutrophils 13.20 H Absolute Lymphocytes 1.28 Absolute Monocytes 1.37 H Absolute Eosinophils 0.15 Absolute Basophils 0.06 ESR 57 H D-Dimer 722 H VBG pH 7.46 H VBG pCO2 34 L VBG pO2 36 VBG HCO3 25 VBG Total CO2 22 L VBG O2 Saturation 72 VBG Base Excess 1 VBG Lactate 1.2 Sodium 140 Potassium 3.4 L Chloride 103 Carbon Dioxide 24.2 Anion Gap 12.8 H BUN 8 Creatinine 1.0 Est GFR (CKD-EPI 2020) 72.13 Glucose 125 H Calcium 9.3 Magnesium 1.9 Total Bilirubin 0.4 AST 105 H ALT 143 H Alkaline Phosphatase 76 Troponin I < 50 C-Reactive Protein 21.30 H NT-Pro-B Natriuret Pep 97 Total Protein 8.5 H Albumin 3.2 L Lipase 21 Procalcitonin 0.1 TSH 2.87 Urine Color Yellow Urine Clarity Clear Urine pH 8.0 Ur Specific [place] 1.025 Urine Protein 100 H Urine Ketones Trace H Urine Blood Small H Urine Nitrite Negative Urine Bilirubin Negative Urine Urobilinogen 2.0 H Ur Leukocyte Esterase Negative Urine RBC 5-10 H Urine WBC 0-2 Ur Epithelial Cells Few Urine Crystals Negative Urine Bacteria Negative Urine Casts Negative Urine Mucus Negative Ur Culture Indicated? No Urine Glucose Negative COVID-19 Source Nasopharynx SARS-CoV-2 (PCR) Negative Influenza Type A (PCR) Negative Influenza Type B (PCR) Negative RSV (PCR) Negative PAWSS Have you Been Recently Intoxicated or Drunk Within the Last 30 days?: No Have you Ever Experienced Previous Episodes of Alcohol Withdrawal?: No Have you ever Experienced Withdrawal Seizures?: No Have you ever Experienced Delirium Tremens(DT)s?: No Have you ever undergone Alcohol Rehabilitation Treatment (i.e, inpt ot outpatient treatment programs)?: No Have you ever Experienced Blackouts?: No Have you ever Combined Alcohol with other Downers within the last 90 days?: No Have you ever Combined Alcohol with any other Substance of Abuse during the last 90 days?: No Positive Blood Alcohol level on Presentation? [PCS.BAL]: No Evidence of Increased Autonomic Activity (i.e. HR>120, tremor, sweating, agitation, nausea)?: No Result: 0 Time Spent with Patient Time Spent with Patient: 25-34 minutes Time was spent: preparing to see the patient(eg.review tests), obtaining and/or reviewing separately otained hiistory, ordering medications,tests, procedures, indepentently interpreting results and counseling the patient
[2024-03-13 17:18] LABS: Legionella Ag Detection Urine Negative (Negative)
[2024-03-13] MEDS: Azithromycin 250 MG TAB PO (20:12)
[2024-03-13] MEDS: cefTRIAXone 1 GM/50 ML BAG IV (20:13)
[2024-03-13] MEDS: Melatonin 3 MG TAB PO (22:01)
[2024-03-14] MEDS: Acetaminophen 325 MG TAB 650 MG PO (02:24)
[2024-03-14] MEDS: Normal Saline Flush 10 ML SYR IVP (04:46)
[2024-03-14] MEDS: Ketorolac 15 MG/ML VIAL IVP (04:47)
[2024-03-14 06:44] LABS: Abs Immature Grans 0.07 10^3/uL (0.0-0.06); Absolute Basophil Count 0.06 10^3/uL (0.0-0.2); Absolute Eosinophil Count 0.49 10^3/uL (0.0-0.7); Absolute Lymphocyte Count 1.66 10^3/uL (1.2-3.4); Absolute Monocyte Count 1.25 10^3/uL (0.1-0.8); Absolute Neutrophil Count 10.46 10^3/uL (1.2-6.7); Basophils % 0.4; Eosinophils % 3.5; HCT 32.1 % (36.0-46.0); HGB 10.9 g/dL (11.2-15.7); Immature Grans % 0.5; Lymphocytes % 11.9; MCH 30.9 pg (27.0-33.0); MCV 91 fL (80-95); MPV 9.3 fL (8.0-11.0); Monocytes % 8.9; Neutrophils % 74.8; Platelet Count 330 10^3/uL (130-400); RBC 3.53 10^6/uL (3.93-5.22); RDW 13.8 % (11.7-14.6); RDW-SD 46.4 fL; WBC 13.99 10^3/uL (4.4-10.8)
[2024-03-14 07:11] LABS: Anion Gap 10.4 mmol/L (3-11); BUN 8 mg/dL (7-18); CO2 23.6 mmol/L (21.0-32.0); CREATININE 0.7 mg/dL (0.55-1.02); Calcium 8.8 mg/dL (8.5-10.1); Chloride 108 mmol/L (98-107); Estimated GFR 110.67 (mL/min/1.73m2); Glucose 88 mg/dL (74-106); Potassium 3.7 mmol/L (3.5-5.1); Sodium 142 mmol/L (136-145)
[2024-03-14 07:57] VITALS: BP 117/81; PULSE 82; RESP 20; TEMP 36.4; O2SAT 98
--- NOTE | 2024-03-14 08:16 | PDOC.CMDIS ---
Date of service: 03/14/24 Time of Service: 08:16 LACE Index Scoring Tool Questions: Length of Stay (in days): 2 Was the patient admitted via the E.D.?: Yes E.D. Visits: 0 Answers: Total Score: 5 Risk of Readmission: Low Risk Care Management Discharge Plan Reason for Hospitalization: Pneumonia Discharge Plan: Lashay will discharge home via private vehicle with family when medically ready. She will follow up with community providers and her discharge plan of care as instructed. No new services are anticipated at this time. Patient/Family Education Needs: Review discharge instructions, discuss Ask Me Three. SDOH Health Related Social Needs: Health related social needs material hardship Health related social needs: material hardship(utilities)(Z59.87)
[2024-03-14] MEDS: guaiFENesin 600 MG TABCR PO (09:28)
[2024-03-14] MEDS: Montelukast 10 MG TAB PO (09:28)
--- NOTE | 2024-03-14 11:03 | DSE_ITS ---
Date of service: 03/14/24 Time of Service: 11:03 DS: Diagnosis Discharge Diagnosis (1) Pneumonia: Status: Acute Discharge Plan Disposition Patient Disposition: Home Condition: Improving Discharge Details Reason For Visit: pneumonia Admit Date/Time: 03/12/24 23:01 Admit Provider: Thom Rojas Attending Provider: Thom Rojas Primary Care Provider: MADISON CAMPUZANO Hospital Course Hospital Course: This is a 43 year old female who presented to the ED with a 1 day history of cough shortness of breath. She does have a history of asthma. Her workup in the emergency department did show multilobar pneumonia. She was started on cefpodoxime and azithromycin. Cultures remained negative. She was weaned off oxygen. She was eating and drinking bowels and bladder functioning hemodynamically stable and ready for discharge to home. She will be discharged home on oral antibiotics for 5 days total which follow-up with her primary care provider if needed. discharge discussed with DR Olivares Loman Meds and New Rx's Prescriptions: New azithromycin 250 mg Tablet 250 mg PO Q24H Qty: 3 0RF cefpodoxime 200 mg tablet 200 mg PO BID Qty: 10 0RF Rx Instructions: must administer with a meal/food guaifenesin [Mucinex] 600 mg tablet extended release 12hr 600 mg PO BID Qty: 10 0RF Continued albuterol sulfate 8.5 GM HFA aerosol inhaler 1 - 2 puff Inhalation Q4H PRN montelukast 10 mg tablet 10 mg PO DAILY Patient Comments: TAKE ONE TABLET BY MOUTH EVERY DAY Discharge Instructions Instructions: Community Acquired Pneumonia (DC) Additional Instructions: finish antibiotics as prescribed even if you feel better drink 6-8 glasses of water daily to stay well hydrated. Stand Alone Forms: Nursing Discharge Form Referrals: MADISON CAMPUZANO, [employer]INFORCING STE[employer] MACHINE OPERATOR [Primary Care Provider] - 03/23/24 8:30 am Activity:: Activity as Tolerated Equipment/Supplies:: No Equipment Needed Diet:: As Tolerated Discharge Orders Discharge Orders: Discharge Order (Routine); Ordered 03/14/24 Ordered By: Kelly Liu Discharge Data Discharge Date/Time-TO BE ENTERED AT DEPARTURE: 03/14/24 13:20 DS: Summary Time Spent with Patient providing and/or coordinating discharge services: Less than 30 minutes Status at Discharge Functional status at discharge: independent ambulation Overall status at discharge: patient is back to baseline Mental Status: mental status grossly normal Speech and Movement: speech and movement normal Mood: congruent mood Affect: normal affect Quality:SDOH Health Related Social Needs: Health related social needs material hardship Exam Narrative Exam Narrative: Well-appearing female of stated age in no acute distress head is atraumatic eyes nonicteric noninjected oral mucosas moist neck is supple with full range of motion no meningeal signs no JVD respirations are even and unlabored her breath sounds are clear bilaterally with diminished in the bases there is no rhonchi or wheezing noted cardiovascular regular rate and rhythm her abdomen is soft nontender skin without rashes or lesions moves all extremities no peripheral edema neurologic she is awake alert oriented no focal deficits psychiatric normal mood and affect Psych Mental Status: mental status grossly normal Speech and Movement: speech and movement normal Mood: congruent mood Affect: normal affect DS: Data Vitals/I&O Vitals and I&O: Vital Signs Temperature 36.4 C L 03/14/24 07:57 Temperature Source Tympanic 03/14/24 07:57 Pulse 82 03/14/24 07:57 Pulse Rhythm Regular 03/13/24 20:15 Pulse 115 H 03/13/24 00:21 Respiratory Rate 20 03/14/24 07:57 Respiratory Effort Normal, Non-Labored, Short of Breath 03/13/24 20:15 Respiratory Depth Normal 03/13/24 20:15 Respiratory Pattern Normal 03/13/24 20:15 Blood Pressure 117/81 03/14/24 07:57 Blood Pressure Mean 105 03/13/24 00:21 Blood Pressure Position Supine 03/12/24 19:49 Pulse Oximetry 98 03/14/24 07:57 Oxygen Delivery Method Room Air 03/14/24 07:57 Oxygen Flow Rate 0 03/14/24 07:57 Pain Level 0 03/14/24 07:57 Intake & Output 03/13/24 03/13/24 03/14/24 11:59 23:59 11:59 Intake Total 1350 / 2650 1300 / 2650 Output Total 950 / 1900 950 / 1900 300 / 300 Balance 400 / 750 350 / 750 -300 / -300 Weight 93.576 kg Intake: IV 500 / 800 300 / 800 Oral 850 / 1850 1000 / 1850 Output: Urine 950 / 1900 950 / 1900 300 / 300 Other: Urine Color Yellow Yellow Yellow Urine Appearance Clear Clear Clear Urine Odor None None Normal Voiding Methods Toilet Toilet Toilet Data Completed and Pending Labs on day of discharge: Labs from last 24 hours 03/14/24 03/12/24 06:32 20:46 WBC 13.99 H RBC 3.53 L Hgb 10.9 L Hct 32.1 L MCV 91 MCH 30.9 MCHC 34.0 RDW 13.8 Plt Count 330 MPV 9.3 Immature Gran % 0.5 Neutrophils % 74.8 Lymphocytes % 11.9 Monocytes % 8.9 Eosinophils % 3.5 Basophils % 0.4 Nucleated RBC % 0.0 Absolute Neutrophils 10.46 H Absolute Lymphocytes 1.66 Absolute Monocytes 1.25 H Absolute Eosinophils 0.49 Absolute Basophils 0.06 Sodium 142 Potassium 3.7 Chloride 108 H Carbon Dioxide 23.6 Anion Gap 10.4 BUN 8 Creatinine 0.7 Est GFR (CKD-EPI 2020) 110.67 Glucose 88 Calcium 8.8 Urine Legionella Ag Negative Preliminary micro results at discharge 03/12/24 20:15 Blood Culture - Preliminary Blood NO GROWTH 24 HOURS 03/12/24 19:45 Blood Culture - Preliminary Blood NO GROWTH 24 HOURS PFSH All Active Problems (Updated 03/15/24 @ 00:09 by JOSEPH TERRY) Pneumonia (Acute) Sepsis (Acute) Social History Smoking/Tobacco Use Status: Never Smoking risk assessment performed?: Yes Alcohol Intake: never Drug use: Never Substance use type: does not use Housing: house Do you feel safe in your relationship?: Yes Time Spent with Patient Time Spent with Patient: <45 minutes Time was spent: preparing to see the patient(eg.review tests), obtaining and/or reviewing separately otained hiistory, ordering medications,tests, procedures, indepentently interpreting results and counseling the patient
== END 2024-03-14 13:20 | disposition home or self-care (01) ==
LOC: ER 03-13 00:26 → MS 03-13 01:00
PROVIDERS: Nurse Practitioner Acute Care; Admitting Provider General Practice; Emergency Provider Physician Assistant; PCP Nurse Practitioner Family; Visit Provider General Practice
DX: J18.9 Pneumonia, unspecified organism (principal); J45.909 Unspecified asthma, uncomplicated; R06.02 Shortness of breath; Z79.899 Other long term (current) drug therapy; R74.01 Elevation of levels of liver transaminase levels; R31.21 Asymptomatic microscopic hematuria
CPT/HCPCS: 00123; 36415; 71275; 80048; 80053; 81025; 82805; 83690; 84145; 85652; 87040; 87449; 87637; 93005; 94640; 96361; 96365; 96366; 96368; 96375; 96376; 99285; 81003; 81015; 83605; 83735; 83880; 84443; 84484; 85025; 85379; 86140; 87070; 87205; 93010; 94667; 94668; 94760; 99222; 99231; 99238; G0378; J0131; J0456; J0696; J1885; J3490; J7620

== ENCOUNTER 2024-08-15 18:38 | Outpatient (REF) | payer BC, SELFPAY ==
[2024-08-15 18:39] LABS: HCT 39.5 % (36.0-46.0); HGB 12.8 g/dL (11.2-15.7); MCH 30.7 pg (27.0-33.0); MCHC 32.4 % (32.0-36.0); MCV 95 fL (80-95); MPV 8.9 fL (8.0-11.0); Platelet Count 439 10^3/uL (130-400); RBC 4.17 10^6/uL (3.93-5.22); RDW 12.6 % (11.7-14.6); RDW-SD 43.7 fL; WBC 11.32 10^3/uL (4.4-10.8)
[2024-08-15 18:56] LABS: ALT 27 U/L (14-59); AST 16 U/L (15-37); Albumin 3.5 g/dL (3.4-5.0); Alkaline Phosphatase 45 U/L (46-116); Anion Gap 7.7 mmol/L (3-11); BUN 13 mg/dL (7-18); CO2 29.3 mmol/L (21.0-32.0); Calcium 9.3 mg/dL (8.5-10.1); Chloride 105 mmol/L (98-107); Estimated GFR 72.13 (mL/min/1.73m2); Glucose 114 mg/dL (74-106); Potassium 4.2 mmol/L (3.5-5.1); Sodium 142 mmol/L (136-145); Total Protein 8.2 g/dL (6.4-8.2)
== END 2024-08-15 18:39 | disposition home or self-care (01) ==
LOC: NCHCN 18:38
PROVIDERS: PCP Nurse Practitioner Family; Visit Provider Nurse Practitioner Family
DX: R74.01 Elevation of levels of liver transaminase levels (principal)
CPT/HCPCS: 80053; 85027

== ENCOUNTER 2024-10-02 01:34 | Outpatient (CLI) | payer BC, SELFPAY ==
--- NOTE | 2024-10-02 | DI.MAMMO_ITS ---
Exam(s) MAMMO SCREENING EXAM: MAMMO SCREENING CLINICAL HISTORY: SCREENING MAMMO Z12.31. TECHNIQUE: Bilateral full field digital CC and MLO mammographic images were obtained with 3D tomosyn thesis and utilizing computer aided detection (CAD). COMPARISON: Prior baseline mammogram September 2023 was reviewed. FINDINGS: Fibroglandular tissue pattern is again noted be moderately dense. There are no new right breast findings. In the left breast on the 3D cc view there is an asymmetric density-possible nodule measuring 6 x 4 m m located 6 cm in from the nipple, medial of center on the CC view. Spot compression view and ultras ound recommended. There are no malignant-appearing microcalcification groups in this region or elsewhere in either [address]. There is no significant architectural distortion nor skin thickening-retraction. IMPRESSION: Dense bilateral fibroglandular tissue. No obvious radiographic evidence of malignancy in the right b reast. Possible left breast nodule measuring 6 x 4 mm as described above. Spot compression left breast CC v iew and breast ultrasound recommended. BI-RADS Category 0 - Incomplete: Need additional imaging evaluation Breast Density - Category C - Heterogeneously dense Breast density Category C or D implies that the patient has dense breast tissue. Dense breast tissue can make it harder to find cancer on a mammogram. Dense breast tissue is also associated with an incr eased risk of breast cancer. This information about the result of the mammogram report was provided to the patient to raise their awareness. Use this report when you speak with the patient about their risks for breast cancer, which includes their family history. At that time, you may recommend additional screening tests (Ultrasoun d or MRI) as these tests may add significant information. A negative radiographic report should not delay biopsy if a dominant or clinically suspicious mass is present. Up to ten percent of cancers are not identified on mammography. A negative report may reinforce clinical impression. Adenosis and dense breasts may obscure an underlying neoplasm. False positive reports average 6 to 10%. Patient will receive a letter notifying them of these results.
== END 2024-10-02 01:54 ==
PROVIDERS: PCP Nurse Practitioner Family; Visit Provider Nurse Practitioner Family
DX: Z12.31 Encounter for screening mammogram for malignant neoplasm of breast (principal); R92.333 Mammographic heterogeneous density, bilateral breasts
CPT/HCPCS: 77063; 77067

== ENCOUNTER 2024-10-04 01:47 | Outpatient (CLI) | payer BC, SELFPAY ==
--- NOTE | 2024-10-04 | DI.US_ITS ---
Exam(s) MG MAMMO SCREEN CALL BACK UNI US BREAST LT COMPLETE EXAM: MG MAMMO SCREEN CALL BACK UNI COMPLETE LEFT BREAST ULTRASOUND CLINICAL HISTORY: F/U MAMMO, LT BREAST ASYMMETRIC DENSITY,? NODULE,R92.8. TECHNIQUE: Unilateral spot mammographic images obtained with 3D tomosynthesisand utilizing computer aided detection (CAD). . Complete LEFT breast Ultrasound was also performed, including all 4 quadrants, the retroareolar regio n, and the ipsilateral axilla. COMPARISON: Prior mammograms were reviewed. This additional imaging was performed due to findings described on the recent screening mammogram of 10/02/2024. FINDINGS: DIAGNOSTIC MAMMOGRAM: Additional mammographic views performed todayrender this area less concerning. WE PROCEEDED WITH ULTRASOUND... COMPLETE BREAST ULTRASOUND: Ultrasound performed today reveals no significant findings in the medial aspect of breast. However, at the 2 o'clock position there is a taller than wider slightly irregular nodule measures approximate ly 6 x 4 mm and has somewhat suspicious appearance. It exhibits neutral through transmission. There are no other focal ultrasound findings in all 4 quadrants of the left breast.. Scanning of the left axilla reveals no significant adenopathy. IMPRESSION: 1. Although there are no significant findings in the medial aspect of the left breast, complete left breast ultrasound today does reveal a somewhat concerning nodular density at the 2 o'clock position as described above. Ultrasound-guided core biopsy recommended. One might consider bilateral breast MRI. Findings are recommendations were discussed by myself with the patient today. Findings are recommendations were by myself to referring office on-call nurse 10/04/2024 2:35 p.m. BI-RADS Category 4 - Suspicious Abnormality: Biopsy should be considered Breast Density - Category C - Heterogeneously dense Breast density Category C or D implies that the patient has dense breast tissue. Dense breast tissue can make it harder to find cancer on a mammogram. Dense breast tissue is also associated with an incr eased risk of breast cancer. This information about the result of the mammogram report was provided to the patient to raise their awareness. Use this report when you speak with the patient about their risks for breast cancer, which includes their family history. At that time, you may recommend additional screening tests (Ultrasoun d or MRI) as these tests may add significant information. A negative radiographic report should not delay biopsy if a dominant or clinically suspicious mass is present. Up to ten percent of cancers are not identified on mammography. A negative report may reinforce clinical impression. Adenosis and dense breasts may obscure an underlying neoplasm. False positive reports average 6 to 10%. Patient will receive a letter notifying them of these results.
== END 2024-10-04 02:07 ==
LOC: DI 01:47
PROVIDERS: PCP Nurse Practitioner Family; Visit Provider Nurse Practitioner Family
DX: R92.8 Other abnormal and inconclusive findings on diagnostic imaging of breast (principal); R92.333 Mammographic heterogeneous density, bilateral breasts; Z12.31 Encounter for screening mammogram for malignant neoplasm of breast
CPT/HCPCS: 76642; 77063; 77067

== ENCOUNTER 2024-12-16 12:00 | Outpatient (REF) | payer BC, SELFPAY | END 2024-12-16 12:01 | disposition home or self-care (01) | LOC: LBN 12:00 | PROVIDERS: PCP Nurse Practitioner Family; Visit Provider Physician Assistant Medical | DX: J02.9 Acute pharyngitis, unspecified (principal) | CPT/HCPCS: 87070 ==

== ENCOUNTER 2025-07-19 18:31 | Outpatient (REF) | payer BC, SELFPAY ==
[2025-07-19 21:28] LABS: COVID-19 PCR Negative (Negative); RSV PCR Negative (Negative)
== END 2025-07-19 18:32 | disposition home or self-care (01) ==
LOC: LBN 18:31
PROVIDERS: PCP Nurse Practitioner Family; Visit Provider Physician Assistant Medical
DX: J06.9 Acute upper respiratory infection, unspecified (principal)
CPT/HCPCS: 87637

== ENCOUNTER 2025-08-15 11:04 | Outpatient (REF) | payer BC, SELFPAY ==
[2025-08-15 16:13] LABS: Hemoglobin A1C 4.8 % (<5.7)
[2025-08-15 16:32] LABS: ALT 22 U/L (14-59); AST 9 U/L (15-37); Albumin 3.5 g/dL (3.4-5.0); Alkaline Phosphatase 39 U/L (46-116); Anion Gap 9.1 mmol/L (3-11); BUN 11 mg/dL (7-18); Bilirubin, Total 0.2 mg/dL (0.2-1.0); CO2 25.9 mmol/L (21.0-32.0); Calcium 9.0 mg/dL (8.5-10.1); Calculated LDL 111 mg/dL (<100); Chloride 106 mmol/L (98-107); Cholesterol 169 mg/dL (<200); Estimated GFR 109.98 (mL/min/1.73m2); Glucose 88 mg/dL (74-106); HDL Cholesterol 43 mg/dL (>or=50); Potassium 4.0 mmol/L (3.5-5.1); Sodium 141 mmol/L (136-145); TSH (W/Ref FT4) 1.31 uIU/mL (0.36-3.74); Total Protein 7.5 g/dL (6.4-8.2); Triglyceride 75 mg/dL (<150)
== END 2025-08-15 11:05 | disposition home or self-care (01) ==
LOC: NCHCN 11:04
PROVIDERS: PCP Nurse Practitioner Family; Visit Provider Nurse Practitioner Family
DX: Z00.00 Encounter for general adult medical examination without abnormal findings (principal); Z13.1 Encounter for screening for diabetes mellitus; Z68.38 Body mass index [BMI] 38.0-38.9, adult
CPT/HCPCS: 80053; 80061; 83036; 84443